=== PATIENT | female | born 1975 | race African-American/Black ===

== ENCOUNTER 2021-10-18 22:43 | Inpatient (IN) | payer MEDICARE, MEDICAID ==
[~2021-10-18] VITALS: Ht 139.7 cm; Wt 80.7 kg
[~2021-10-18 22:43] MED LIST: ESCI10TA MT; HYDR25TA MT; HYDR25TA PO; LEVO50TA8 PO; METO25TA6 PO
[2021-10-18] MEDS ORDERED: SODIUM CHLORIDE 0.9% 1,000 ML IV ONE (23:00)
[2021-10-19] VITALS (8 sets, daily range): BP systolic 84–165; BP diastolic 45–79
[2021-10-19 01:46] LABS: CHLORIDE 85 mEq/L (98-107)
[2021-10-19 01:48] LABS: BASOPHILS % 0.6 % (0.0-2.0); EOSINOPHILS % 0.4 % (0.0-5.0); HEMATOCRIT. 32.4 % (36.0-48.0); HEMOGLOBIN. 10.9 g/dL (12.0-16.0); LYMPHOCYTES % 21.5 % (20.0-50.0); MEAN CORPUSCULAR HEMOGLOBIN 28.4 pg (28.0-32.0); MEAN CORPUSCULAR VOLUME 84.4 fL (81.0-99.0); MEAN PLATELET VOLUME 11.2 fl (7.4-10.4); MONOCYTES % 4.4 % (2.0-8.0); NEUTROPHILS % 73.1 % (40.0-76.0); PLATELET 187 x1000/uL (130-400); RED BLOOD CELL COUNT 3.84 mill/uL (4.2-5.4); RED CELL DISTRIBUTION WIDTH 14.8 % (11.6-14.6)
[2021-10-19 01:50] LABS: ETHANOL BLOOD < 10 mg/dL
[2021-10-19 01:54] LABS: HCG SCREEN NEGATIVE
[2021-10-19] MEDS ORDERED: POTASSIUM CHLORIDE 20MEQ TABLET SR PO NR (02:45)
[2021-10-19] MEDS ORDERED: KCL 10MEQ/50ML PREMIX 50 ML IV NR ×2 (02:45→04:00)
[2021-10-19] MEDS ORDERED: FUROSEMIDE 20MG/2ML VIAL IVP ONE (02:45)
[2021-10-19 03:26] LABS: CREATINE KINASE 20548 IU/L (26-192)
[2021-10-19] MEDS ORDERED: ACETAMINOPHEN 325MG TABLET PO ONE (04:00)
[2021-10-19 04:41] LABS: CLARITY URINE CLOUDY (CLEAR); COLOR URINE YELLOW (YELLOW); KETONES URINE NEGATIVE (NEGATIVE); LEUKOCYTE ESTERASE URINE 1+ (NEGATIVE); NITRITE URINE NEGATIVE (NEGATIVE); OCCULT BLOOD URINE 1+ (NEGATIVE); PH URINE 5.5 (4.5-8.0); PROTEIN URINE 1+ (NEGATIVE); SPECIFIC GRAVITY URINE 1.011 (1.005-1.030)
[2021-10-19] MEDS ORDERED: CEFTRIAXONE 1 G PREMIX 50 ML IV NR (04:45)
[2021-10-19] MEDS ORDERED: ASPIRIN 325MG EC TABLET PO ONE (05:00)
[2021-10-19 05:01] LABS: *AMPHETAMINES SCREEN URINE NEGATIVE (NEGATIVE); *BARBITURATES SCREEN URINE NEGATIVE (NEGATIVE); *BENZODIAZEPINES SCREEN URINE NEGATIVE (NEGATIVE); *COCAINE SCREEN URINE NEGATIVE (NEGATIVE); METHADONE URINE SCREEN NEGATIVE (NEGATIVE); OPIATES URINE SCREEN NEGATIVE (NEGATIVE)
[2021-10-19 05:02] LABS: CANNABINOID URINE SCREEN NEGATIVE (NEGATIVE); PHENCYCLIDINE URINE SCREEN NEGATIVE (NEGATIVE)
[2021-10-19] MEDS ORDERED: ONDANSETRON HCL 4MG/2ML INJ IV PRN (09:30)
[2021-10-19] MEDS ORDERED: ACETAMINOPHEN 325MG TABLET PO PRN (09:30)
[2021-10-19] MEDS: POTASSIUM CHLORIDE 20MEQ TABLET SR PO SCH (09:39)
[2021-10-19] MEDS ORDERED: CEFTRIAXONE 1 G PREMIX 50 ML IV SCH ×2 (10:00→12:00)
[2021-10-19] MEDS: SODIUM CHLORIDE 0.9% 1,000 ML IV SCH ×2 (11:24→18:07)
[2021-10-19] MEDS: CEFTRIAXONE 1,000 MG in DEXTROSE 5% WATER 50 ML IV SCH (12:34)
[2021-10-19 16:34] LABS: PHOSPHORUS 5.7 mg/dL (2.5-4.9)
[2021-10-19 16:37] LABS: T4 FREE 0.78 ng/dL (0.76-1.46)
[2021-10-19] MEDS: KCL 20MEQ/100ML PREMIX 100 ML IV SCH ×2 (16:48→18:06)
[2021-10-19] MEDS: CALCITRIOL 0.25MCG CAPSULE PO SCH (16:48)
[2021-10-19] MEDS: CALCIUM GLUCONATE 1GM PREMIX 50 ML IV SCH (17:26)
[2021-10-19] MEDS ORDERED: PHENYLEPHRINE 50 MG in DEXT 5% WATER 245 ML IV PRN (22:30)
[2021-10-19] MEDS ORDERED: METHYLPREDNISOLONE SOD SUCC 125 MG/2 ML VIAL IV NR (22:30)
[2021-10-19] MEDS ORDERED: NOREPINEPHRINE 8 MG in DEXT 5% WATER 242 ML IV PRN (22:30)
[2021-10-19] MEDS ORDERED: MIDAZOLAM HCL 2 MG/2 ML VIAL ONE (23:46)
[2021-10-20] VITALS (76 sets, daily range): BP systolic 49–242; BP diastolic 19–220
[2021-10-20] MEDS ORDERED: PROPOFOL 1000MG/100ML VIAL IV NR (00:15)
[2021-10-20] MEDS ORDERED: MIDAZOLAM HCL 2 MG/2 ML VIAL IV NR (00:15)
[2021-10-20] MEDS ORDERED: SUCCINYLCHOLINE CHLORIDE 200MG/10ML IV NR (00:15)
[2021-10-20 00:58] LABS: BG CARBOXYHEMOGLOBIN 0.3 % (0.5-1.5); BG DEOXYHEMOGLOBIN 2.5 % (0.0-5.0); BG FRACTION INSPIRED OXYGEN 50; BG HCO3 ACT 31.2 mmol/L (22.0-26.0); BG METHEMOGLOBIN 0.1 % (0.0-1.5); BG OXYGEN SATURATION 97.5 % (92.0-98.5); BG OXYHEMOGLOBIN 97.1 % (94.0-97.0); BG PH 7.431 (7.350-7.450); BG PO2 100.3 mmHg (75.0-100.0); BG SAMPLE SITE RIGHT RADIAL; BG VENT MODE VENT - AC
[2021-10-20] MEDS: PROPOFOL 10MG/ML 100ML 100 ML IV PRN ×4 (01:34→11:07)
[2021-10-20 05:37] LABS: BASOPHILS % 0.2 % (0.0-2.0); EOSINOPHILS % 0.2 % (0.0-5.0); HEMATOCRIT. 31.2 % (36.0-48.0); HEMOGLOBIN. 10.4 g/dL (12.0-16.0); LYMPHOCYTES % 14.9 % (20.0-50.0); MEAN CORPUSCULAR HEMOGLOBIN 28.3 pg (28.0-32.0); MEAN CORPUSCULAR VOLUME 84.4 fL (81.0-99.0); MEAN PLATELET VOLUME 11.5 fl (7.4-10.4); MONOCYTES % 1.3 % (2.0-8.0); NEUTROPHILS % 83.4 % (40.0-76.0); PLATELET 180 x1000/uL (130-400); RED BLOOD CELL COUNT 3.69 mill/uL (4.2-5.4); RED CELL DISTRIBUTION WIDTH 14.7 % (11.6-14.6)
[2021-10-20 05:39] LABS: CHLORIDE 94 mEq/L (98-107)
[2021-10-20 05:47] LABS: PHOSPHORUS 3.4 mg/dL (2.5-4.9)
[2021-10-20] MEDS: CALCIUM GLUCONATE 1GM PREMIX 50 ML IV SCH ×4 (06:07→21:32)
[2021-10-20] MEDS ORDERED: LEVOTHYROXINE SODIUM 50MCG TABLET PO SCH (06:30)
[2021-10-20] MEDS ORDERED: CALCIUM GLUCONATE 100MG/ML 10ML VIAL IV ONE (06:45)
[2021-10-20] MEDS ORDERED: CALCIUM GLUCONATE 2,000 MG in DEXT 5% WATER 100 ML IV SCH (07:00)
[2021-10-20 07:19] LABS: CREATINE KINASE 21592 IU/L (26-192)
[2021-10-20] MEDS: POTASSIUM CHLORIDE 20MEQ TABLET SR PO SCH (08:30)
[2021-10-20] MEDS: CALCITRIOL 0.25MCG CAPSULE PO SCH (08:31)
[2021-10-20] MEDS: SODIUM CHLORIDE 0.9% 1,000 ML IV SCH ×2 (08:32→21:32)
[2021-10-20] MEDS ORDERED: CALCITRIOL 1MCG/ML AMP IV SCH ×2 (09:00→21:00)
[2021-10-20] MEDS: CALCIUM CARBONATE 500MG TABLET CHEW PO SCH ×2 (10:42→21:33)
[2021-10-20] MEDS: CEFTRIAXONE 1,000 MG in DEXTROSE 5% WATER 50 ML IV SCH (14:25)
[2021-10-20 15:40] LABS: CHLORIDE 97 mEq/L (98-107)
[2021-10-20] MEDS: FENTANYL 2500MCG/250ML PMX 250 ML IV PRN (17:46)
[2021-10-20] MEDS ORDERED: MIDAZOLAM 100MG/100ML PMX 100 ML IV PRN (18:30)
[2021-10-21] VITALS (66 sets, daily range): BP systolic 96–154; BP diastolic 56–106
[2021-10-21] MEDS ORDERED: DIPHENHYDRAMINE 50MG/ML VIAL IV PRN (00:30)
[2021-10-21] MEDS ORDERED: LORAZEPAM 2MG/ML CPJ IV PRN (00:30)
[2021-10-21] MEDS: LEVETIRACETAM 1000MG PREMIX 100 ML IV SCH ×2 (00:57→13:39)
[2021-10-21] MEDS: CALCIUM GLUCONATE 1GM PREMIX 50 ML IV SCH ×4 (03:15→22:20)
[2021-10-21] MEDS: LEVOTHYROXINE SODIUM 75MCG TABLET PO SCH (05:31)
[2021-10-21 05:44] LABS: BASOPHILS % 0.3 % (0.0-2.0); HEMATOCRIT. 32.6 % (36.0-48.0); HEMOGLOBIN. 10.9 g/dL (12.0-16.0); LYMPHOCYTES % 19.8 % (20.0-50.0); MEAN CORPUSCULAR HEMOGLOBIN 28.7 pg (28.0-32.0); MEAN CORPUSCULAR VOLUME 85.6 fL (81.0-99.0); MEAN PLATELET VOLUME 11.8 fl (7.4-10.4); MONOCYTES % 4.2 % (2.0-8.0); NEUTROPHILS % 75.7 % (40.0-76.0); PLATELET 161 x1000/uL (130-400); RED CELL DISTRIBUTION WIDTH 14.9 % (11.6-14.6)
[2021-10-21 05:55] LABS: CHLORIDE 100 mEq/L (98-107)
[2021-10-21 06:04] LABS: PHOSPHORUS 5.3 mg/dL (2.5-4.9)
[2021-10-21 07:10] LABS: CREATINE KINASE 10564 IU/L (26-192)
[2021-10-21 08:26] LABS: BG BASE EXCESS 1.6 mmol/L (-2.0-2.0); BG CARBOXYHEMOGLOBIN 0.3 % (0.5-1.5); BG DEOXYHEMOGLOBIN 2.8 % (0.0-5.0); BG FRACTION INSPIRED OXYGEN 45; BG HCO3 ACT 25.7 mmol/L (22.0-26.0); BG METHEMOGLOBIN 0.2 % (0.0-1.5); BG OXYGEN SATURATION 97.2 % (92.0-98.5); BG OXYHEMOGLOBIN 96.7 % (94.0-97.0); BG PCO2 38.7 mmHg (35.0-45.0); BG PO2 99.8 mmHg (75.0-100.0); BG SAMPLE SITE RIGHT RADIAL; BG VENT MODE VENT - AC
[2021-10-21] MEDS: POTASSIUM CHLORIDE 20MEQ/PACKET PO SCH (09:30)
[2021-10-21] MEDS: CALCIUM CARBONATE 500MG TABLET CHEW PO SCH ×2 (09:30→22:20)
[2021-10-21] MEDS: CEFTRIAXONE 1,000 MG in DEXTROSE 5% WATER 50 ML IV SCH (12:08)
[2021-10-21] MEDS: SODIUM CHLORIDE 0.9% 1,000 ML IV SCH (13:45)
[2021-10-21 15:00] LABS: BG BASE EXCESS 1.7 mmol/L (-2.0-2.0); BG CARBOXYHEMOGLOBIN 0.3 % (0.5-1.5); BG DEOXYHEMOGLOBIN 1.4 % (0.0-5.0); BG FRACTION INSPIRED OXYGEN 45; BG HCO3 ACT 28.7 mmol/L (22.0-26.0); BG METHEMOGLOBIN 0.2 % (0.0-1.5); BG OXYGEN SATURATION 98.6 % (92.0-98.5); BG OXYHEMOGLOBIN 98.1 % (94.0-97.0); BG PCO2 56.5 mmHg (35.0-45.0); BG PH 7.323 (7.350-7.450); BG SAMPLE SITE RIGHT RADIAL; BG TOTAL HEMOGLOBIN 11.1 g/dL (12.0-18.0); BG VENT MODE VENT - CPAP
[2021-10-21] MEDS ORDERED: MIDAZOLAM HCL 100 MG in SODIUM CHLORIDE 0.9% 80 ML IV PRN (16:30)
[2021-10-21] MEDS ORDERED: ATROPINE SULFATE 1MG/10ML SYR IV NR (17:39)
[2021-10-21] MEDS: CALCITRIOL 1MCG/ML AMP IV SCH (22:42)
[2021-10-22] VITALS (44 sets, daily range): BP systolic 99–176; BP diastolic 52–107
[2021-10-22] MEDS: LEVETIRACETAM 1000MG PREMIX 100 ML IV SCH ×2 (03:00→14:22)
[2021-10-22] MEDS: SODIUM CHLORIDE 0.9% 1,000 ML IV SCH ×3 (03:01→13:55)
[2021-10-22] MEDS: CALCIUM GLUCONATE 1GM PREMIX 50 ML IV SCH ×2 (03:01→09:12)
[2021-10-22] MEDS: LEVOTHYROXINE SODIUM 75MCG TABLET PO SCH (05:40)
[2021-10-22 05:51] LABS: EOSINOPHILS % 1.7 % (0.0-5.0); HEMATOCRIT. 31.4 % (36.0-48.0); HEMOGLOBIN. 10.4 g/dL (12.0-16.0); LYMPHOCYTES % 31.1 % (20.0-50.0); MEAN CORPUSCULAR HEMOGLOBIN 28.5 pg (28.0-32.0); MEAN CORPUSCULAR VOLUME 86.4 fL (81.0-99.0); MEAN PLATELET VOLUME 11.5 fl (7.4-10.4); MONOCYTES % 4.4 % (2.0-8.0); NEUTROPHILS % 61.8 % (40.0-76.0); PLATELET 187 x1000/uL (130-400); RED BLOOD CELL COUNT 3.64 mill/uL (4.2-5.4)
[2021-10-22 06:22] LABS: CHLORIDE 104 mEq/L (98-107)
[2021-10-22 06:37] LABS: PHOSPHORUS 3.6 mg/dL (2.5-4.9)
[2021-10-22 07:03] LABS: CREATINE KINASE 6492 IU/L (26-192)
[2021-10-22] MEDS: CALCIUM CARBONATE 500MG TABLET CHEW PO SCH ×3 (09:12→23:00)
[2021-10-22] MEDS: POTASSIUM CHLORIDE 20MEQ/PACKET PO SCH (09:12)
[2021-10-22] MEDS: CEFTRIAXONE 1,000 MG in DEXTROSE 5% WATER 50 ML IV SCH (11:34)
[2021-10-22] MEDS: HYDRALAZINE HCL 25MG TABLET PO SCH ×2 (14:22→22:14)
[2021-10-22] MEDS ORDERED: POTASSIUM CHLORIDE 20MEQ/PACKET PO SCH (17:00)
[2021-10-22] MEDS: CALCITRIOL 1MCG/ML AMP IV SCH (22:14)
[2021-10-23] VITALS (70 sets, daily range): BP systolic 92–156; BP diastolic 46–106
[2021-10-23] MEDS: LEVETIRACETAM 1000MG PREMIX 100 ML IV SCH ×2 (00:44→13:18)
[2021-10-23] MEDS: SODIUM CHLORIDE 0.9% 1,000 ML IV SCH (00:45)
[2021-10-23] MEDS: LEVOTHYROXINE SODIUM 75MCG TABLET PO SCH (05:42)
[2021-10-23] MEDS: HYDRALAZINE HCL 25MG TABLET PO SCH ×3 (05:42→22:00)
[2021-10-23] MEDS: FENTANYL 2500MCG/250ML PMX 250 ML IV PRN (05:43)
[2021-10-23 06:08] LABS: BASOPHILS % 0.8 % (0.0-2.0); EOSINOPHILS % 3.7 % (0.0-5.0); HEMATOCRIT. 30.3 % (36.0-48.0); HEMOGLOBIN. 9.9 g/dL (12.0-16.0); LYMPHOCYTES % 28.4 % (20.0-50.0); MEAN CORPUSCULAR HEMOGLOBIN 28.9 pg (28.0-32.0); MONOCYTES % 3.9 % (2.0-8.0); NEUTROPHILS % 63.2 % (40.0-76.0); PLATELET 177 x1000/uL (130-400); RED BLOOD CELL COUNT 3.44 mill/uL (4.2-5.4); RED CELL DISTRIBUTION WIDTH 15.1 % (11.6-14.6)
[2021-10-23 06:14] LABS: CHLORIDE 107 mEq/L (98-107)
[2021-10-23 06:20] LABS: PHOSPHORUS 5.7 mg/dL (2.5-4.9)
[2021-10-23 06:34] LABS: CREATINE KINASE 3328 IU/L (26-192)
[2021-10-23] MEDS ORDERED: POTASSIUM CHLORIDE 20MEQ/PACKET PO SCH (09:00)
[2021-10-23] MEDS: CALCIUM CARBONATE 500MG TABLET CHEW PO SCH ×3 (09:10→21:56)
[2021-10-23] MEDS: SODIUM CHLORIDE 0.45% 1,000 ML IV SCH (09:23)
[2021-10-23] MEDS ORDERED: CALCIUM GLUCONATE 1GM PREMIX 50 ML IV SCH (10:00)
[2021-10-23] MEDS ORDERED: MAGNESIUM 2 G PREMIX 50 ML IV SCH (10:00)
[2021-10-23] MEDS ORDERED: METHYLPREDNISOLONE SOD SUCC 125 MG/2 ML VIAL IV SCH (11:30)
[2021-10-23] MEDS: CEFTRIAXONE 1,000 MG in DEXTROSE 5% WATER 50 ML IV SCH (11:45)
[2021-10-23 11:47] LABS: BG BASE EXCESS 2.4 mmol/L (-2.0-2.0); BG CARBOXYHEMOGLOBIN 0.3 % (0.5-1.5); BG DEOXYHEMOGLOBIN 4.9 % (0.0-5.0); BG FRACTION INSPIRED OXYGEN 40; BG HCO3 ACT 29.5 mmol/L (22.0-26.0); BG METHEMOGLOBIN 0.5 % (0.0-1.5); BG OXYGEN SATURATION 95.1 % (92.0-98.5); BG OXYHEMOGLOBIN 94.3 % (94.0-97.0); BG PCO2 57.6 mmHg (35.0-45.0); BG PH 7.327 (7.350-7.450); BG PO2 79.7 mmHg (75.0-100.0); BG SAMPLE SITE RIGHT RADIAL; BG TOTAL HEMOGLOBIN 11.7 g/dL (12.0-18.0); BG VENT MODE VENT - CPAP
[2021-10-23] MEDS ORDERED: RACEPINEPHRINE 2.25% 0.5ML NEB VIAL HHN SCH (12:15)
[2021-10-23] MEDS: CALCITRIOL 1MCG/ML AMP IV SCH (21:56)
[2021-10-24] VITALS (13 sets, daily range): BP systolic 113–162; BP diastolic 59–102
[2021-10-24] MEDS: LEVETIRACETAM 1000MG PREMIX 100 ML IV SCH ×2 (01:30→15:08)
[2021-10-24 05:51] LABS: BASOPHILS % 0.2 % (0.0-2.0); HEMATOCRIT. 31.6 % (36.0-48.0); HEMOGLOBIN. 10.2 g/dL (12.0-16.0); LYMPHOCYTES % 14.9 % (20.0-50.0); MEAN PLATELET VOLUME 11.3 fl (7.4-10.4); MONOCYTES % 1.1 % (2.0-8.0); NEUTROPHILS % 83.8 % (40.0-76.0); PLATELET 194 x1000/uL (130-400); RED BLOOD CELL COUNT 3.63 mill/uL (4.2-5.4); RED CELL DISTRIBUTION WIDTH 15.3 % (11.6-14.6)
[2021-10-24 06:13] LABS: CHLORIDE 102 mEq/L (98-107)
[2021-10-24 06:20] LABS: PHOSPHORUS 4.4 mg/dL (2.5-4.9)
[2021-10-24 06:35] LABS: CREATINE KINASE 1866 IU/L (26-192)
[2021-10-24] MEDS: LEVOTHYROXINE SODIUM 75MCG TABLET PO SCH (07:33)
[2021-10-24] MEDS: HYDRALAZINE HCL 25MG TABLET PO SCH (07:33)
[2021-10-24] MEDS: CALCIUM CARBONATE 500MG TABLET CHEW PO SCH ×3 (07:33→21:28)
[2021-10-24] MEDS: SODIUM CHLORIDE 0.45% 1,000 ML IV SCH (08:41)
[2021-10-24] MEDS ORDERED: ERGOCALCIFEROL 50000UNITS CAPSULE PO SCH (10:00)
[2021-10-24] MEDS: HYDRALAZINE HCL 50MG TABLET PO SCH ×2 (13:16→21:28)
[2021-10-24] MEDS: CEFTRIAXONE 1,000 MG in DEXTROSE 5% WATER 50 ML IV SCH (15:08)
[2021-10-24] MEDS: LEVETIRACETAM 500MG TABLET PO SCH (21:27)
[2021-10-25] VITALS (7 sets, daily range): BP systolic 101–137; BP diastolic 55–76
[2021-10-25] MEDS: CALCIUM CARBONATE 500MG TABLET CHEW PO SCH ×3 (06:23→19:23)
[2021-10-25] MEDS: LEVOTHYROXINE SODIUM 75MCG TABLET PO SCH (06:23)
[2021-10-25] MEDS: HYDRALAZINE HCL 50MG TABLET PO SCH (06:24)
[2021-10-25 08:13] LABS: BASOPHILS % 0.3 % (0.0-2.0); EOSINOPHILS % 0.8 % (0.0-5.0); HEMATOCRIT. 32.1 % (36.0-48.0); HEMOGLOBIN. 10.6 g/dL (12.0-16.0); MEAN CORPUSCULAR HEMOGLOBIN 28.1 pg (28.0-32.0); MEAN CORPUSCULAR VOLUME 84.9 fL (81.0-99.0); MEAN PLATELET VOLUME 10.2 fl (7.4-10.4); MONOCYTES % 3.7 % (2.0-8.0); NEUTROPHILS % 64.2 % (40.0-76.0); PLATELET 207 x1000/uL (130-400); RED BLOOD CELL COUNT 3.78 mill/uL (4.2-5.4); RED CELL DISTRIBUTION WIDTH 15.3 % (11.6-14.6)
[2021-10-25 08:33] LABS: CHLORIDE 101 mEq/L (98-107)
[2021-10-25 08:41] LABS: PHOSPHORUS 3.7 mg/dL (2.5-4.9)
[2021-10-25] MEDS: LEVETIRACETAM 500MG TABLET PO SCH ×2 (09:11→21:16)
[2021-10-25] MEDS: HYDRALAZINE HCL 25MG TABLET PO SCH ×2 (13:20→22:00)
[2021-10-25] MEDS ORDERED: CALC500T35 PO (14:33)
[2021-10-25] MEDS ORDERED: LEVO75TA7 PO (14:33)
[2021-10-26] VITALS: BP 119/97
[2021-10-26 03:54] VITALS: BP 123/55
[2021-10-26] MEDS: HYDRALAZINE HCL 25MG TABLET PO SCH (05:38)
[2021-10-26] MEDS: LEVOTHYROXINE SODIUM 75MCG TABLET PO SCH (05:39)
[2021-10-26 07:35] LABS: CHLORIDE 101 mEq/L (98-107)
[2021-10-26 07:38] LABS: BASOPHILS % 0.7 % (0.0-2.0); EOSINOPHILS % 2.4 % (0.0-5.0); HEMATOCRIT. 31.7 % (36.0-48.0); HEMOGLOBIN. 10.7 g/dL (12.0-16.0); MEAN CORPUSCULAR HEMOGLOBIN 29.1 pg (28.0-32.0); MEAN CORPUSCULAR VOLUME 86.1 fL (81.0-99.0); MEAN PLATELET VOLUME 10.4 fl (7.4-10.4); NEUTROPHILS % 50.9 % (40.0-76.0); PLATELET 182 x1000/uL (130-400); RED BLOOD CELL COUNT 3.68 mill/uL (4.2-5.4); RED CELL DISTRIBUTION WIDTH 15.4 % (11.6-14.6)
[2021-10-26 07:41] LABS: PHOSPHORUS 4.2 mg/dL (2.5-4.9)
[2021-10-26 08:00] VITALS: BP 139/75
[2021-10-26] MEDS: LEVETIRACETAM 500MG TABLET PO SCH (08:28)
[2021-10-26] MEDS: CALCIUM CARBONATE 500MG TABLET CHEW PO SCH (08:28)
[2021-10-26 10:49] VITALS: BP 122/67
[2021-10-27 17:06] LABS: 25-HYDROXY VITAMIN D3 11 ng/mL (.)
[2021-10-28] MEDS ORDERED: HYDR-4134 MT (08:47)
== END 2021-10-26 11:40 | disposition home health service (06) | DRG 208 ==
LOC: ER 22:43 → 7EST 10-19 03:47 → ENRESERV 10-19 07:29 → MICUSO 10-19 23:00 → 8WST 10-24 10:03
PROVIDERS: ADMIT Internal Medicine; ATTEND Internal Medicine
PROC: 5A1945Z Respiratory Ventilation, 24-96 Consecutive Hours (ICD-10-PCS; principal; 2021-10-19)
PROC: 0BH17EZ Insertion of Endotracheal Airway into Trachea, Via Natural or Artificial Opening (ICD-10-PCS; 2021-10-19)
PROC: 02HV33Z Insertion of Infusion Device into Superior Vena Cava, Percutaneous Approach (ICD-10-PCS; 2021-10-20)
PROC: B548ZZA Ultrasonography of Superior Vena Cava, Guidance (ICD-10-PCS; 2021-10-20)
PROC: 4A10X4Z Monitoring of Central Nervous Electrical Activity, External Approach (ICD-10-PCS; 2021-10-21)
DX: J96.01 Acute respiratory failure with hypoxia (principal); G93.41 Metabolic encephalopathy; I21.4 Non-ST elevation (NSTEMI) myocardial infarction; M62.82 Rhabdomyolysis; N39.0 Urinary tract infection, site not specified; E87.1 Hypo-osmolality and hyponatremia; Z68.41 Body mass index [BMI] 40.0-44.9, adult; E87.6 Hypokalemia; I10 Essential (primary) hypertension; E78.00 Pure hypercholesterolemia, unspecified; E03.9 Hypothyroidism, unspecified; J45.909 Unspecified asthma, uncomplicated; E78.5 Hyperlipidemia, unspecified; E87.8 Other disorders of electrolyte and fluid balance, not elsewhere classified; E83.51 Hypocalcemia; E66.9 Obesity, unspecified; E83.42 Hypomagnesemia; D64.9 Anemia, unspecified; K76.0 Fatty (change of) liver, not elsewhere classified; K80.20 Calculus of gallbladder without cholecystitis without obstruction; F79 Unspecified intellectual disabilities; Z79.899 Other long term (current) drug therapy; Q38.2 Macroglossia; Z86.73 Personal history of transient ischemic attack (TIA), and cerebral infarction without residual deficits
CPT/HCPCS: 36415; 36600; 70551; 71045; 76937; 80048; 80053; 80305; 80320; 81003; 82140; 82306; 82330; 82375; 82550; 82805; 82962; 83735; 83880; 83970; 84100; 84132; 84439; 84443; 84478; 84484; 84550; 84703; 85025; 92610; 93005; 93306; 94002; 94003; 94640; 95816; 97162; 99291; A6261; C1725; C1893; J0610; J0636; J0696; J1200; J1940; J1953; J2250; J2370; J2704; J2930; J3010; J3475; J3480; J3490; J7030; J7040; J7060; A4315; G0480